=== PATIENT | male | born 2000 | race African-American/Black ===

== ENCOUNTER 2022-09-03 00:15 | Emergency (ER) | payer SELFPAY ==
[~2022-09-03] VITALS: Ht 185.4 cm; Wt 84.8 kg
[2022-09-03 00:30] VITALS: BP 119/77
== END 2022-09-03 01:43 | disposition left against medical advice (07) ==
LOC: ER 00:15
DX: R05.9 Cough, unspecified (principal); J02.9 Acute pharyngitis, unspecified; R53.1 Weakness; R11.2 Nausea with vomiting, unspecified; Z53.21 Procedure and treatment not carried out due to patient leaving prior to being seen by health care provider